=== PATIENT | female | born 1960 | race Caucasian/White ===

== ENCOUNTER 2023-08-01 13:12 | Emergency (ER) | payer MEDICARE, OTHER ==
[~2023-08-01] VITALS: Ht 162.6 cm; Wt 77.7 kg
[2023-08-01 13:36] VITALS: O2SAT 96
[2023-08-01] MEDS ORDERED: ACETAMINOPHEN 325 MG TAB PO ONE (14:00)
[2023-08-01] MEDS ORDERED: ACETAMINOPHEN 325 MG TAB ONE (14:17)
[2023-08-01] MEDS ORDERED: XARELTO1 EACH (14:29)
[2023-08-01] MEDS ORDERED: IBRANCE100 M1 (14:29)
== END 2023-08-01 14:26 | disposition home or self-care (01) ==
LOC: FSED 13:18
DX: M25.511 Pain in right shoulder (principal); Z85.3 Personal history of malignant neoplasm of breast; C79.51 Secondary malignant neoplasm of bone; D64.9 Anemia, unspecified; K21.9 Gastro-esophageal reflux disease without esophagitis; F32.A Depression, unspecified; F41.9 Anxiety disorder, unspecified; M54.9 Dorsalgia, unspecified; G89.29 Other chronic pain; Z79.69 Long term (current) use of other immunomodulators and immunosuppressants; F17.210 Nicotine dependence, cigarettes, uncomplicated; Z86.718 Personal history of other venous thrombosis and embolism
CPT/HCPCS: 99282